=== PATIENT | male | born 1955 | race Caucasian/White ===

== ENCOUNTER → 2019-07-25 | Emergency (ER) | payer OTHER ==
[~2019-07-25] VITALS: Ht 182.9 cm; Wt 111.1 kg
[~2019-07-25] MED LIST: MORPHINE SULFATE 4 MG/ML SYR/VIAL IV ONE; ONDANSETRON HCL 4 MG/2 ML VIAL IV ONE; PIPERACILLIN-TAZOB 3.375GM 100 ML IV ONE; SODIUM CHLORIDE 0.9% 1,000 ML IV ONE
[2019-07-25 04:20] LABS: Basophils # (auto) 0.1 10 ^3/uL (0-0.2); Basophils % (auto) 0.5 % (0.0-2.0); Eosinophils # (auto) 0 10 ^3/uL (0-0.8); Eosinophils % (auto) 0.4 % (0.0-7.0); Hematocrit 45.3 % (41.0-53.0); Hemoglobin 15.1 g/dL (13.5-17.5); Lymphocytes # (auto) 1.1 10 ^3/uL (0.4-5.4); Lymphocytes % (auto) 9.8 % (10.0-50.0); Mean Corpuscular Hemoglobin 29.4 pg (28.0-32.0); Mean Corpuscular Hgb Conc. 33.4 g/dL (32.0-36.0); Monocytes # (auto) 0.7 10 ^3/uL (0-1.3); Monocytes % (auto) 6.6 % (0.0-12.0); Neutrophils # (auto) 9.3 10 ^3/uL (1.6-8.6); Neutrophils % (auto) 82.7 % (37.0-80.0); Platelet Count (auto) 178 10^3/uL (140-450); Red Blood Cells 5.15 10^6/uL (4.5-5.90); Red Cell Distribution Width 13.1 % (11.8-14.3); White Blood Cell 11.3 10^3/uL (4.4-10.8)
[2019-07-25 09:35] LABS: Basophils # (auto) 0 10 ^3/uL (0-0.2); Basophils % (auto) 0.5 % (0.0-2.0); Eosinophils # (auto) 0.1 10 ^3/uL (0-0.8); Eosinophils % (auto) 0.7 % (0.0-7.0); Hematocrit 44.8 % (41.0-53.0); Hemoglobin 15.4 g/dL (13.5-17.5); Lymphocytes # (auto) 1.1 10 ^3/uL (0.4-5.4); Lymphocytes % (auto) 13.7 % (10.0-50.0); Mean Corpuscular Hemoglobin 30.4 pg (28.0-32.0); Mean Corpuscular Hgb Conc. 34.3 g/dL (32.0-36.0); Mean Corpuscular Volume 88.5 fL (80.0-100.0); Monocytes # (auto) 0.7 10 ^3/uL (0-1.3); Monocytes % (auto) 8.3 % (0.0-12.0); Neutrophils # (auto) 6.3 10 ^3/uL (1.6-8.6); Neutrophils % (auto) 76.8 % (37.0-80.0); Nucleated Red Blood Cells % 0.1 %; Platelet Count (auto) 160 10^3/uL (140-450); Red Blood Cells 5.06 10^6/uL (4.5-5.90); Red Cell Distribution Width 13.2 % (11.8-14.3); White Blood Cell 8.3 10^3/uL (4.4-10.8)
[2019-07-25 09:52] VITALS: BP 135/90
[2019-07-25 09:52] LABS: Alanine Aminotransferase 20 U/L (16-61); Albumin 3.9 g/dL (3.4-5.0); Anion Gap 8 (5-15); Aspartate Aminotransferase 15 U/L (15-37); BUN/Creatinine Ratio 5.8; Blood Urea Nitrogen 5 mg/dL (7-18); Calcium 8.6 mg/dL (8.5-10.1); Carbon Dioxide 24 mmol/L (21-32); Chloride 107 mmol/L (98-107); GFR African American 115 mL/min; GFR Non-African American 95 mL/min; Glucose 122 mg/dL (74-106); Potassium 3.5 mmol/L (3.5-5.1); Sodium 139 mmol/L (136-145)
[2019-07-25 09:56] LABS: Alkaline Phosphatase 54 U/L (45-117); Bilirubin, Total 0.8 mg/dL (0.2-1.0); Total Protein 7.4 g/dL (6.4-8.2)
[2019-07-25 10:07] LABS: INR 1.13 (0.9-1.15); Partial Thromboplastin Time 30.2 sec (23.64-32.05)
[2019-07-25 10:22] LABS: Lactic Acid w/Reflex 2.4 mmol/L (0.4-2.0)
[2019-07-25 10:45] LABS: Urine Bacteria NONE SEEN /hpf (None Seen); Urine Blood Negative /uL (Negative); Urine Specific Gravity 1.006 (1.001-1.035); Urine WBC 1 /hpf (0 - 3)
[2019-07-25 10:46] LABS: Alcohol, Urine < 3.0 mg/dL (0-5); Amphetamine Screen, Urine NEGATIVE (NEGATIVE); Barbiturate Scree,Urine NEGATIVE (NEGATIVE); Benzodiazephine Screen, Urine NEGATIVE (NEGATIVE); Cannabinoid Screen, Urine POSITIVE (NEGATIVE); Cocaine Screen, Urine NEGATIVE (NEGATIVE); Phencyclidine Screen, Urine NEGATIVE (NEGATIVE)
[2019-07-25 10:53] LABS: Opiate Scree,Urine NEGATIVE (NEGATIVE)
== END | disposition home or self-care (01) ==
LOC: EDBD 01:17 → ER 01:25
DX: K40.90 Unilateral inguinal hernia, without obstruction or gangrene, not specified as recurrent (principal); E86.0 Dehydration; Z90.49 Acquired absence of other specified parts of digestive tract; Z88.2 Allergy status to sulfonamides
CPT/HCPCS: 36415; 71045; 74176; 80053; 80307; 81001; 83605; 83690; 84484; 85025; 85610; 85730; 87040; 96365; 96375; 99285; J2270; J2405; J2543; J7030

== ENCOUNTER 2019-12-14 00:40 | Inpatient (IN) | payer OTHER ==
[~2019-12-14] VITALS: Ht 365.8 cm; Wt 102.9 kg
[2019-12-14 01:54] LABS: Basophils # (auto) 0 10 ^3/uL (0-0.2); Basophils % (auto) 0.6 % (0.0-2.0); Eosinophils # (auto) 0.2 10 ^3/uL (0-0.8); Eosinophils % (auto) 3.6 % (0.0-7.0); Hemoglobin 11.6 g/dL (13.5-17.5); Lymphocytes # (auto) 1.5 10 ^3/uL (0.4-5.4); Lymphocytes % (auto) 25.9 % (10.0-50.0); Mean Corpuscular Hemoglobin 30.7 pg (28.0-32.0); Mean Corpuscular Hgb Conc. 34.2 g/dL (32.0-36.0); Mean Corpuscular Volume 89.7 fL (80.0-100.0); Monocytes # (auto) 0.5 10 ^3/uL (0-1.3); Monocytes % (auto) 8.7 % (0.0-12.0); Neutrophils # (auto) 3.4 10 ^3/uL (1.6-8.6); Neutrophils % (auto) 61.2 % (37.0-80.0); Nucleated Red Blood Cells % 0.1 %; Platelet Count (auto) 125 10^3/uL (140-450); Red Blood Cells 3.79 10^6/uL (4.5-5.90); Red Cell Distribution Width 13.3 % (11.8-14.3); White Blood Cell 5.6 10^3/uL (4.4-10.8)
[2019-12-14 02:11] LABS: INR 1.11 (0.9-1.15); Partial Thromboplastin Time 29.1 sec (23.0-31.2)
[2019-12-14 02:14] LABS: Amylase 19 U/L (25-115); Anion Gap 6 (5-15); Blood Urea Nitrogen 10 mg/dL (7-18); Carbon Dioxide 26 mmol/L (21-32); Chloride 107 mmol/L (98-107); Glucose 97 mg/dL (74-106); Lipase 96 U/L (73-393); Magnesium 2.3 mg/dL (1.6-2.6); Potassium 3.5 mmol/L (3.5-5.1); Sodium 139 mmol/L (136-145)
[2019-12-14 02:16] LABS: Alanine Aminotransferase 19 U/L (16-61); Aspartate Aminotransferase 9 U/L (15-37); BUN/Creatinine Ratio 11.2; GFR African American 110 mL/min; GFR Non-African American 91 mL/min
[2019-12-14 02:21] LABS: Alkaline Phosphatase 57 U/L (45-117); Bilirubin, Total 0.6 mg/dL (0.2-1.0); Total Protein 7.4 g/dL (6.4-8.2)
[2019-12-14] MEDS ORDERED: ONDANSETRON HCL 4 MG/2 ML VIAL IV ONE (12:15)
[2019-12-14] MEDS ORDERED: MORPHINE SULF INJ 2 MG/ML SYRINGE 1ML IV ONE (12:15)
[2019-12-14] MEDS ORDERED: PROMETHAZINE HCL 25 MG/ML 1ML IV PRN (12:45)
[2019-12-14] MEDS ORDERED: MORPHINE SULF INJ 2 MG/ML SYRINGE 1ML IV PRN (12:45)
[2019-12-14] MEDS ORDERED: TEMAZEPAM 15 MG CAP PO PRN (12:45)
[2019-12-14] MEDS ORDERED: DEXTROSE (50%) 50ML SYRG IV PRN (12:45)
[2019-12-14] MEDS ORDERED: ACETAMINOPHEN 500 MG TAB PO PRN (12:45)
[2019-12-14] MEDS: ACCU-CHEK COMFORT CURVE STRIP VI SCH ×2 (17:00→22:12)
[2019-12-14] MEDS: FAMOTIDINE 20 MG TAB PO SCH ×2 (18:09→18:30)
[2019-12-14] MEDS ORDERED: LABETALOL HCL 5 MG/ML 4ML SYRINGE IV PRN (20:00)
--- NOTE | 2019-12-14 20:30 | NUR ---
received pt from ER
[2019-12-14] MEDS: traMADol HCL 50 MG TAB PO PRN (20:55)
[2019-12-14 22:00] VITALS: BP 154/92
[2019-12-15] MEDS: traMADol HCL 50 MG TAB PO PRN ×2 (03:22→12:47)
[2019-12-15] MEDS ORDERED: IBUP100S11 PO (03:31)
[2019-12-15] MEDS ORDERED: ACET-1304 PO (03:31)
[2019-12-15 05:00] VITALS: BP 155/73
[2019-12-15] MEDS: ACCU-CHEK COMFORT CURVE STRIP VI SCH ×4 (06:10→21:15)
[2019-12-15 09:00] VITALS: BP 136/72
--- NOTE | 2019-12-15 11:31 | NUR ---
BLOOD GLUCOSE LEVEL 123. WILL CONTINUE TO MONITOR.
[2019-12-15 13:00] VITALS: BP 141/82
--- NOTE | 2019-12-15 13:24 | NUR ---
Opening Shift Note Assumed care of patient, awake and alert. No S/S of distress/SOB Patient complained of headache administered Tylenol . Instructed on POC and instructed to call for assistance PRN, Bed was at its lowest position will continue to monitor for changes Q1hr and PRN. Addendum: 12/15/19 at 1651 by Maribel Lu RN CORRECT TIME WAS 0730
[2019-12-15] MEDS: MEPERIDINE HCL (50 MG/ML) 1 ML VIAL IM PRN ×2 (14:41→18:36)
--- NOTE | 2019-12-15 16:52 | NUR ---
BLOOD GLUCOSE LEVEL 12. WILL CONTINUE TO MONITOR. Addendum: 12/15/19 at 1652 by Maribel Lu RN CORRECT BLOOD GLUCOSE LEVEL WAS 91
[2019-12-15 17:00] VITALS: BP 137/85
[2019-12-15] MEDS: FAMOTIDINE 20 MG TAB PO SCH (21:15)
[2019-12-15 22:00] VITALS: BP 130/99
[2019-12-16] MEDS: MEPERIDINE HCL (50 MG/ML) 1 ML VIAL IM PRN ×2 (03:48→10:40)
[2019-12-16 05:00] VITALS: BP 143/71
[2019-12-16 06:08] LABS: Basophils # (auto) 0 10 ^3/uL (0-0.2); Basophils % (auto) 0.3 % (0.0-2.0); Eosinophils # (auto) 0.2 10 ^3/uL (0-0.8); Eosinophils % (auto) 2.2 % (0.0-7.0); Hematocrit 43.3 % (41.0-53.0); Hemoglobin 14.7 g/dL (13.5-17.5); Lymphocytes # (auto) 1.2 10 ^3/uL (0.4-5.4); Lymphocytes % (auto) 13.8 % (10.0-50.0); Mean Corpuscular Hemoglobin 30.3 pg (28.0-32.0); Mean Corpuscular Hgb Conc. 33.9 g/dL (32.0-36.0); Mean Corpuscular Volume 89.4 fL (80.0-100.0); Monocytes # (auto) 0.8 10 ^3/uL (0-1.3); Monocytes % (auto) 9.2 % (0.0-12.0); Neutrophils # (auto) 6.2 10 ^3/uL (1.6-8.6); Neutrophils % (auto) 74.5 % (37.0-80.0); Nucleated Red Blood Cells % 0.1 %; Platelet Count (auto) 150 10^3/uL (140-450); Red Blood Cells 4.84 10^6/uL (4.5-5.90); Red Cell Distribution Width 13.2 % (11.8-14.3); White Blood Cell 8.4 10^3/uL (4.4-10.8)
[2019-12-16 06:26] LABS: Potassium 3.5 mmol/L (3.5-5.1)
[2019-12-16 06:30] LABS: BUN/Creatinine Ratio 10.3; Calcium 8.3 mg/dL (8.5-10.1)
[2019-12-16] MEDS: ACCU-CHEK COMFORT CURVE STRIP VI SCH (06:48)
--- NOTE | 2019-12-16 08:28 | NUR ---
Opening Shift Note Assumed care of patient, awake and alert. No S/S of distress/SOB or pain. Bed was at lowest position and call light is within reach instructed on POC and to call for assistance PRN ,will continue to monitor for changes Q1hr and PRN.
[2019-12-16 09:00] VITALS: BP 147/92
[2019-12-16] MEDS: FAMOTIDINE 20 MG TAB PO SCH (09:19)
[2019-12-16] MEDS ORDERED: MEPERIDINE HCL (25 MG/ML) 1ML VIAL IM PRN (12:00)
[2019-12-16] MEDS: SODIUM CHLORIDE 0.9% 1,000 ML IV SCH ×2 (12:00→22:42)
[2019-12-16] MEDS ORDERED: LABETALOL HCL 5 MG/ML 4ML SYRINGE IV PRN (12:00)
[2019-12-16 13:00] VITALS: BP 141/97
[2019-12-16 14:06] LABS: Urine Bacteria NONE SEEN /hpf (None Seen); Urine Blood Negative /uL (Negative); Urine Specific Gravity 1.006 (1.001-1.035); Urine WBC <1 /hpf (0 - 3)
[2019-12-16] MEDS: MEPERIDINE HCL (25 MG/ML) 1ML VIAL IV PRN ×2 (16:20→22:42)
[2019-12-16 17:00] VITALS: BP 144/81
[2019-12-16 21:56] VITALS: BP 158/85
[2019-12-17 05:00] VITALS: BP 139/86
[2019-12-17] MEDS: MEPERIDINE HCL (25 MG/ML) 1ML VIAL IV PRN ×4 (05:09→21:12)
[2019-12-17 06:20] LABS: Basophils # (auto) 0.1 10 ^3/uL (0-0.2); Basophils % (auto) 0.6 % (0.0-2.0); Eosinophils # (auto) 0.2 10 ^3/uL (0-0.8); Hematocrit 44.3 % (41.0-53.0); Hemoglobin 15.1 g/dL (13.5-17.5); Lymphocytes # (auto) 1.3 10 ^3/uL (0.4-5.4); Lymphocytes % (auto) 15.9 % (10.0-50.0); Mean Corpuscular Hemoglobin 30.5 pg (28.0-32.0); Mean Corpuscular Hgb Conc. 34.1 g/dL (32.0-36.0); Mean Corpuscular Volume 89.5 fL (80.0-100.0); Monocytes # (auto) 0.7 10 ^3/uL (0-1.3); Monocytes % (auto) 8.7 % (0.0-12.0); Neutrophils % (auto) 72.8 % (37.0-80.0); Nucleated Red Blood Cells % 0.2 %; Platelet Count (auto) 166 10^3/uL (140-450); Red Blood Cells 4.95 10^6/uL (4.5-5.90); Red Cell Distribution Width 13.1 % (11.8-14.3); White Blood Cell 8.3 10^3/uL (4.4-10.8)
--- NOTE | 2019-12-17 06:30 | NUR ---
CHG wipes applied
[2019-12-17 06:38] LABS: BUN/Creatinine Ratio 11.3; Calcium 8.5 mg/dL (8.5-10.1); Potassium 3.5 mmol/L (3.5-5.1)
--- NOTE | 2019-12-17 07:05 | NUR ---
PROVIDED REPORT TO DAY RN. NOTIFIED RN OF PRE-OP REQUESTING PATIENT AT [id number] AM.
--- NOTE | 2019-12-17 07:30 | NUR ---
Opening Shift Note Assumed care of patient, awake and alert. No S/S of distress/SOB or pain.Bed is locked and in lowest position and call light is with in reach. Instructed on POC and to call for assistance PRN, will continue to monitor for changes Q1hr and PRN.
[2019-12-17] MEDS ORDERED: BUPIVACAINE W/ EPINEPH 0.25% INJ 50ML MDV ONE (08:12)
[2019-12-17] MEDS ORDERED: MEPERIDINE HCL (50 MG/ML) 1 ML VIAL ONE (08:17)
[2019-12-17] MEDS ORDERED: fentaNYL CITRATE 100 MCG/2 ML VL ONE (08:17)
[2019-12-17] MEDS ORDERED: MIDAZOLAM HCL 1MG/1ML-2 ML VIAL ONE (08:17)
--- NOTE | 2019-12-17 08:17 | NUR ---
PATIENT WAS TAKEN DOWN TO OR , no signs of distress, or anxiety.
[2019-12-17] MEDS ORDERED: ceFAZolin 1GM/50ML 50 ML IV ONE (08:20)
[2019-12-17] MEDS ORDERED: SUCCINYLCHOLINE CHLORIDE 20 MG/ML 10ML VIAL IV ONE (08:21)
[2019-12-17] MEDS ORDERED: PROPOFOL 10 MG/ML 20 ML IV ONE ×2 (08:21→09:33)
[2019-12-17] MEDS ORDERED: DexAMETHasone SOD PHOS 10MG/1ML VIAL INJ ONE (08:51)
[2019-12-17 09:00] VITALS: BP 162/94
--- NOTE | 2019-12-17 09:10 | NUR ---
Patient is down at OR Addendum: 12/17/19 at 1104 by ROM CRESW RN RN Amended: Links added.
[2019-12-17] MEDS: FAMOTIDINE (10MG/ML) 2ML VL IV SCH (10:00)
[2019-12-17] MEDS ORDERED: ONDANSETRON HCL 4 MG/2 ML VIAL IV PRN ×2 (10:15→10:45)
[2019-12-17] MEDS ORDERED: MIDAZOLAM HCL 1MG/1ML-2 ML VIAL IV PRN (10:45)
[2019-12-17] MEDS ORDERED: LABETALOL HCL 5 MG/ML 4ML SYRINGE IV PRN (10:45)
[2019-12-17] MEDS ORDERED: MORPHINE SULFATE 4 MG/ML SYR/VIAL IV PRN (10:45)
[2019-12-17] MEDS ORDERED: HYDROmorphone HCL 2 MG/ML VL IV PRN (10:45)
[2019-12-17] MEDS ORDERED: ePHEDrine SULFATE 50 MG/ML AMP IV PRN (10:45)
--- NOTE | 2019-12-17 11:05 | NUR ---
Patient down at OR Addendum: 12/17/19 at 1106 by ROM CREWS RN RN Amended: Lina added.
--- NOTE | 2019-12-17 11:30 | NUR ---
Returned Patient returned from OR , incision is intact, dressing clean , dry and intact. No signs of distress.
[2019-12-17 13:00] VITALS: BP_SYST 136; BP_SYST 166; BP_DIAS 75; BP_DIAS 92
[2019-12-17] MEDS: PHENAZOPYRIDINE HCL 100 MG TAB PO SCH ×2 (13:14→17:43)
[2019-12-17] MEDS: ceFAZolin 1GM/50ML 50 ML IV SCH ×2 (13:15→21:13)
--- NOTE | 2019-12-17 13:59 | NUR ---
Dc Left Ac Dc left Ac , Started Left hand , Flushed and patent.
--- NOTE | 2019-12-17 14:14 | NUR ---
Order for Jock Strap Patient is refusing to wear jockstrap at this time , education to wear it was given patient continues to refuse. Will make primary RN aware will attempt again at a later time.
--- NOTE | 2019-12-17 14:46 | NUR ---
Nutrition Assessment Notes Please refer to link for full assessment notes. Est Energy needs: 6289-7176 kcals (20-23 kcal/kgBW) Est Protein needs: 104-114 gms/day (1.0-1.1 gm/kgBW) Will continue to monitor and reassess prn. Addendum: 12/17/19 at [address] Amended: Links added.
--- NOTE | 2019-12-17 16:15 | NUR ---
assessment Patient is a 64 year old male who is alert and oriented. Patients cognitive abilities are intact. Prior to admission patient lived home alone and functioned independently. Patient informed me he is able to care for his own ADLs. Per patient he will return home to his prior living arrangements post discharge and he will have transport home. Patient has a cane for home use. Patient informed me he will have help on discharge from his neighbor if he needs it. Patient may benefit from a fww on discharge. I informed patient he has a right to speak to a high school social studies teacher regarding all care. I informed patient he has a right to participate in any and all discharge planning. Patient does not have a POA and advanced directive. I have offered patient information on POA and advanced directives. I informed the patient the advantages and benefits of having an Advanced Directive. Patient verbalized understanding and agreed to discharge plan home. Addendum: 12/17/19 at 1619 by Jane HEIN Amended: Links added.
--- NOTE | 2019-12-17 16:20 | NUR ---
DE LA CRUZ BAG LEAKING, BAG WAS CHANGED OUT
[2019-12-17 17:00] VITALS: BP 157/111
--- NOTE | 2019-12-17 19:20 | NUR ---
Opening Shift Note Assumed care of patient, awake and alert. No S/S of distress/SOB or pain. Instructed on POC and to call for assist PRN, will continue to monitor for changes Q1hr and PRN. Side rails up x 2, HOB elevated at least 30 degrees and call light is within reach.
[2019-12-17] MEDS: SODIUM CHLORIDE 0.9% 1,000 ML IV SCH (21:13)
[2019-12-17 22:00] VITALS: BP 155/100
--- NOTE | 2019-12-17 23:00 | NUR ---
IV insertion IV access obtained, via clean sterile technique by inserting 22 gauge catheter at right hand after 1 attempt. IV secured properly. No trauma to site. Patient tolerated well.
[2019-12-17] MEDS: HYDROmorphone HCL 2 MG/ML VL IV PRN (23:17)
[2019-12-18] MEDS: MEPERIDINE HCL (25 MG/ML) 1ML VIAL IV PRN (01:28)
[2019-12-18] MEDS: HYDROmorphone HCL 2 MG/ML VL IV PRN ×6 (02:57→18:21)
--- NOTE | 2019-12-18 03:01 | NUR ---
INCREASED SWELLING PATIENT VERBALIZED A COMPLAINT OF INCREASED SWELLING AT GROIN. AREA TENDER AND PAIN EVIDENCED BY GROANING AND WITHDRAWAL FROM TOUCH. BP AT 156/88 WITH A HR OF 86, RESPIRATIONS AT 20 AND 02 SAT AT 96. PRN MEDICATION GIVEN ORDERED. WILL REASSESS WITHIN THE HOUR.
--- NOTE | 2019-12-18 03:35 | NUR ---
Jock Strap Patient reusing to wear jock strap. Patient verbalized that he feels the jock strap is too small and will give him pain if he wears it. Education provided, however patient continued to refuse. Will inquire for a larger size.
--- NOTE | 2019-12-18 03:42 | NUR ---
PAIN REASSESSMENT PATIENT VERBALIZED A DECREASE IN PAIN LEVEL TO A 3. PATIENT VERBALIZED THAT THIS IS A TOLERABLE PAIN LEVEL AT THIS TIME.
[2019-12-18 05:00] VITALS: BP 136/86
[2019-12-18] MEDS: ceFAZolin 1GM/50ML 50 ML IV SCH ×3 (05:04→22:31)
--- NOTE | 2019-12-18 05:16 | NUR ---
ICE PACKS 2 ICE PACKS APPLIED TO GROIN AREA
--- NOTE | 2019-12-18 07:11 | NUR ---
CLOSING SHIFT NOTE ENDORSED CARE TO DAY SHIFT RN
--- NOTE | 2019-12-18 07:40 | NUR ---
Opening Note Assumed pt care from NOC RN. PT is a/ox4 with no s/s of distress or SOB. Pt is currently sitting upright in bed with c/o pain to R inguinal area, 01/30. Pt states that he feels "that [his] scrotum is swollen"; assessed incision site and scrotum, no abnormalities noted. Pt is currently refusing to wear jock strap per MD's orders; pt states that it is too tight. Provided pt with education on strap; pt still refused. Padilla is present, draining to gravity and free of kinks. Discussed POC with pt; pt verbalized understanding. Safety measures maintained with call light within reach, bed in lowest position and side rails up. Will continue to monitor for changes.
[2019-12-18 07:46] LABS: Basophils # (auto) 0 10 ^3/uL (0-0.2); Basophils % (auto) 0.2 % (0.0-2.0); Eosinophils # (auto) 0.1 10 ^3/uL (0-0.8); Eosinophils % (auto) 0.4 % (0.0-7.0); Hematocrit 43.6 % (41.0-53.0); Lymphocytes # (auto) 1.8 10 ^3/uL (0.4-5.4); Mean Corpuscular Hemoglobin 30.4 pg (28.0-32.0); Mean Corpuscular Hgb Conc. 34.4 g/dL (32.0-36.0); Mean Corpuscular Volume 88.3 fL (80.0-100.0); Monocytes # (auto) 1.7 10 ^3/uL (0-1.3); Monocytes % (auto) 12.1 % (0.0-12.0); Neutrophils # (auto) 10.2 10 ^3/uL (1.6-8.6); Neutrophils % (auto) 74.3 % (37.0-80.0); Nucleated Red Blood Cells % 0.2 %; Platelet Count (auto) 186 10^3/uL (140-450); Red Blood Cells 4.93 10^6/uL (4.5-5.90); White Blood Cell 13.7 10^3/uL (4.4-10.8)
[2019-12-18] MEDS: PHENAZOPYRIDINE HCL 100 MG TAB PO SCH ×3 (07:50→17:46)
[2019-12-18 08:03] LABS: Calcium 8.3 mg/dL (8.5-10.1); Potassium 3.4 mmol/L (3.5-5.1)
--- NOTE | 2019-12-18 08:50 | NUR ---
0435 12/18/19 - Faxed to [facility] at [phone] face sheet, order for DME front Stephany chapa, current clinicals. Pending review and delivery of DME to bedside. Addendum: 12/18/19 at 1006 by Lottie Dodge RN, CM [id number] 12/18/19 - Contacted [facility] AT [phone] regarding pending DME order for FWW, spoke with financial business analyst Lo who confirmed receipt of all faxed clinicals. Lo stated the skilled nursing case manager assigned to this patient is Steffen, who is processing the DME order now. Provided Lo with my call back info. Addendum: 12/18/19 at 1540 by Lottie Dodge RN CM [id number] 12/18/19 - Contacted by [facility] skilled nursing case managerSteffen who stated DME was approved and will be delivered to bedside via [employer]. Spoke with bedside nurse (GENEVA) who stated walker has been delivered.
[2019-12-18 09:00] VITALS: BP 149/94
[2019-12-18] MEDS: FAMOTIDINE (10MG/ML) 2ML VL IV SCH (09:49)
--- NOTE | 2019-12-18 11:33 | NUR ---
Dr Gonzales at Bedside MD to see pt. Discussed POC with pt and assessed pt's incision site. MD requests that Dr Mae see pt today. New orders given. Will implement and continue to monitor for changes.
[2019-12-18] MEDS ORDERED: POTASSIUM CHL 20 Meq TABLET PO ONE (11:45)
[2019-12-18] MEDS ORDERED: DOCUSATE SOD 100 MG CAP PO ONE (11:45)
[2019-12-18] MEDS ORDERED: LACTULOSE 20Gm/30ML SOLN PO ONE (11:45)
[2019-12-18] MEDS: HYDROcodone-ACET 5/325MG TAB PO PRN ×2 (12:02→19:22)
[2019-12-18 13:00] VITALS: BP 164/84
[2019-12-18] MEDS: SODIUM CHLORIDE 0.9% 1,000 ML IV SCH (13:17)
--- NOTE | 2019-12-18 15:37 | NUR ---
D/C Planning Walker was delivered to pt's bedside.
--- NOTE | 2019-12-18 16:01 | NUR ---
Paged Materials For Larger Jock Strap Spoke with materials, stated they would provide pt with larger jock strap. Will continue to monitor and once delivered will implement. Addendum: 12/18/19 at 1803 by CARMINA CARRILLO RN RN Pt provided jock strap and education regarding purpose.
[2019-12-18 16:44] VITALS: BP 150/72
--- NOTE | 2019-12-18 19:20 | NUR ---
Opening Shift Note Assumed care of patient, awake and alert. No S/S of distress/SOB or pain. Instructed on POC and to call for assist PRN, will continue to monitor for changes Q1hr and PRN. Assisted patient with application of jock strap. Side rails up x 2, HOB elevated at least 30 degrees and call light is within reach.
[2019-12-18 22:00] VITALS: BP 149/80
[2019-12-19] MEDS: HYDROmorphone HCL 2 MG/ML VL IV PRN ×3 (04:38→19:59)
[2019-12-19 05:00] VITALS: BP 150/79
[2019-12-19] MEDS: ceFAZolin 1GM/50ML 50 ML IV SCH ×3 (05:38→21:29)
[2019-12-19] MEDS: SODIUM CHLORIDE 0.9% 1,000 ML IV SCH ×2 (05:55→11:08)
--- NOTE | 2019-12-19 07:03 | NUR ---
CLOSING NOTE ENDORSED CARE TO DAY SHIFT RN
[2019-12-19] MEDS: PHENAZOPYRIDINE HCL 100 MG TAB PO SCH (08:21)
[2019-12-19 09:00] VITALS: BP 140/74
[2019-12-19 09:08] LABS: Basophils # (auto) 0.1 10 ^3/uL (0-0.2); Basophils % (auto) 0.5 % (0.0-2.0); Eosinophils # (auto) 0 10 ^3/uL (0-0.8); Eosinophils % (auto) 0.4 % (0.0-7.0); Hematocrit 40.4 % (41.0-53.0); Lymphocytes # (auto) 1.1 10 ^3/uL (0.4-5.4); Lymphocytes % (auto) 10.8 % (10.0-50.0); Mean Corpuscular Hemoglobin 30.6 pg (28.0-32.0); Mean Corpuscular Hgb Conc. 34.6 g/dL (32.0-36.0); Mean Corpuscular Volume 88.5 fL (80.0-100.0); Monocytes # (auto) 1.5 10 ^3/uL (0-1.3); Monocytes % (auto) 14.6 % (0.0-12.0); Neutrophils # (auto) 7.4 10 ^3/uL (1.6-8.6); Neutrophils % (auto) 73.7 % (37.0-80.0); Nucleated Red Blood Cells % 0.1 %; Platelet Count (auto) 167 10^3/uL (140-450); Red Blood Cells 4.57 10^6/uL (4.5-5.90); Red Cell Distribution Width 13.2 % (11.8-14.3); White Blood Cell 10.1 10^3/uL (4.4-10.8)
--- NOTE | 2019-12-19 09:15 | NUR ---
Opening Shift Note Assumed care of patient, awake alert and performing morning oral care upon entering the room. No S/S of distress/SOB. Pain rated 4/10 and tolerable. Surgical site appears dry and well approximated with steri strips. No signs of swelling, redness or drainage. Patient educated on POC and to call for assist PRN. Patient verbalized understanding. Will continue to monitor for changes Q1hr and PRN.
[2019-12-19] MEDS: FAMOTIDINE (10MG/ML) 2ML VL IV SCH (09:17)
[2019-12-19 09:29] LABS: BUN/Creatinine Ratio 10.9; Calcium 8.1 mg/dL (8.5-10.1)
--- NOTE | 2019-12-19 09:30 | NUR ---
DC DE LA CRUZ DE LA CRUZ CATHETER REMOVE AT NURSING DISCRETION. PATIENT TOLERATED REMOVAL WELL. PATIENT HAD 250 ML REMOVED PRIOR TO DC. WILL MONITOR PATIENT VOIDING NEEDS. PROVIDED PATIENT URINAL.
--- NOTE | 2019-12-19 11:10 | NUR ---
Voiding Pt has been able to void without difficulty.
--- NOTE | 2019-12-19 11:25 | NUR ---
Dr Gonzales at bedside Doctor in to see patient. Discussed plan of care. MD request to follow up on advanced of diet. Will contact Dr Mae and continue to monitor.
[2019-12-19] MEDS ORDERED: POTASSIUM CHL 20 Meq TABLET PO ONE (11:30)
[2019-12-19 13:06] VITALS: BP 144/94
--- NOTE | 2019-12-19 13:51 | NUR ---
Dr Mae at bedside Dr Mae at bedside, states he will put in order to advance patient's diet.
--- NOTE | 2019-12-19 14:38 | NUR ---
Nutrition Followup Notes Pt wt is 104.0. Pt is currently NPO d/t scheduled procedure, previously with a Full Liquid diet with a poor appetite aeb ave <20% Po intake over 3 days per RN doc Encouraged pt to increase PO intake after resuming diet. Est Energy needs: 1328-0640 kcals (20-23 kcal/kgBW) Est Protein needs: 104-114 gms/day (1.0-1.1 gm/kgBW) Will continue to monitor and reassess prn. LABS: GLUC 112 H, CA 8.1 L GI: Pt had 1 BM on 12/16 per RN doc BS: 20 Low risk. Refer to wound assessment report for full details. PES: Obesity r/t energy intake in excess of energy needs aeb 129% IBW and BMI of 31.1 kg/m2 Comments Will continue to monitor PO status, skin status, pertinent labs and weight trends. Will f/u in 3-5 days. 1) Continue to carefully monitor pt NPO status 2) Gradually advance pt to oral diet when medically feasible and as tolerated 3) Refer pt to a OP RD for nutrition education upon D/C 4) Continue current plan of care
[2019-12-19 17:00] VITALS: BP 139/87
--- NOTE | 2019-12-19 17:25 | NUR ---
PT IS ABLE TO AMBULATE WITH FWW INDEPENDENTLY. NURSING TO ASSIST PATIENT NEEDED.
--- NOTE | 2019-12-19 20:46 | NUR ---
Opening Shift Note Assumed care of patient, awake and alert. No S/S of SOB. Patient expressed a pain level of 8 out of 10. Will administer PRN pain medication. Instructed on POC and to call for assist PRN, will continue to monitor for changes Q1hr and PRN. Bed locked in lowest position, HOB elevated at least 30 degrees, side rails up x 2 and call light is within reach.
[2019-12-19 21:50] VITALS: BP 133/79
[2019-12-20] MEDS: HYDROmorphone HCL 2 MG/ML VL IV PRN (01:59)
[2019-12-20 04:54] VITALS: BP 135/84
[2019-12-20] MEDS: ceFAZolin 1GM/50ML 50 ML IV SCH ×3 (05:30→21:20)
--- NOTE | 2019-12-20 07:36 | NUR ---
CLOSING NOTE ENDORSED CARE TO DAY SHIFT RN
[2019-12-20 07:49] LABS: Basophils # (auto) 0 10 ^3/uL (0-0.2); Basophils % (auto) 0.5 % (0.0-2.0); Eosinophils # (auto) 0.2 10 ^3/uL (0-0.8); Eosinophils % (auto) 2.1 % (0.0-7.0); Hematocrit 37.8 % (41.0-53.0); Hemoglobin 13.4 g/dL (13.5-17.5); Lymphocytes # (auto) 1.3 10 ^3/uL (0.4-5.4); Lymphocytes % (auto) 16.9 % (10.0-50.0); Mean Corpuscular Hemoglobin 31.1 pg (28.0-32.0); Mean Corpuscular Hgb Conc. 35.4 g/dL (32.0-36.0); Mean Corpuscular Volume 87.9 fL (80.0-100.0); Neutrophils # (auto) 5.1 10 ^3/uL (1.6-8.6); Neutrophils % (auto) 67.5 % (37.0-80.0); Platelet Count (auto) 155 10^3/uL (140-450); Red Blood Cells 4.29 10^6/uL (4.5-5.90); White Blood Cell 7.5 10^3/uL (4.4-10.8)
[2019-12-20 08:23] LABS: Potassium 2.9 mmol/L (3.5-5.1)
--- NOTE | 2019-12-20 08:26 | NUR ---
OPENING SHIFT NOTE Assumed Care of pt. Pt is awake and A&Ox4 with no s/s of distress or SOB. Eating breakfast comfortably in bed. Reviewed POC with pt. Call light within reach, bed in lowest position and side rails up. Will continue to monitor for changes Q1HR.
--- NOTE | 2019-12-20 09:29 | NUR ---
CRITICAL POTASSIUM OF 2.9. MD ALREADY AWARE OF 3.0 POTASSIUM. WILL NOTIFY MD OF NEW RESULT.
[2019-12-20 09:36] VITALS: BP 163/80
[2019-12-20] MEDS ORDERED: TAMSULOSIN HYDROCHLORIDE 0.4 MG CAP PO ONE (10:45)
[2019-12-20] MEDS ORDERED: POTASSIUM CHL 20 Meq TABLET PO ONE (10:45)
[2019-12-20 12:52] VITALS: BP 143/79
[2019-12-20 16:34] VITALS: BP 139/98
[2019-12-20] MEDS: HYDROcodone-ACET 5/325MG TAB PO PRN (20:16)
--- NOTE | 2019-12-20 20:16 | NUR ---
Opening Shift Note Assumed care of patient, awake and alert. No S/S of distress/SOB c/o right inguinal pain 6/10 pain. Instructed on POC and to call for assist PRN, will continue to monitor for changes Q1hr and PRN.Medicated with [place] 5/325mg.p.o.one tab. as needed.Sterile strips intact.
[2019-12-20 22:00] VITALS: BP 121/89
[2019-12-21 05:00] VITALS: BP 163/100
[2019-12-21] MEDS: ceFAZolin 1GM/50ML 50 ML IV SCH ×2 (05:30→14:00)
[2019-12-21 05:50] VITALS: BP 135/91
[2019-12-21] MEDS: HYDROcodone-ACET 5/325MG TAB PO PRN (05:55)
--- NOTE | 2019-12-21 06:20 | NUR ---
IV insertion IV access obtained, via clean sterile technique by inserting 22 gauge catheter at left hand after attempt. IV secured properly. No trauma to site. Patient tolerated procedure well.
[2019-12-21 06:39] LABS: Potassium 3.2 mmol/L (3.5-5.1)
[2019-12-21 06:41] LABS: BUN/Creatinine Ratio 9.7; Calcium 8.5 mg/dL (8.5-10.1)
--- NOTE | 2019-12-21 07:23 | NUR ---
Report given to Esteban Galvan, patient is resting no distress.
--- NOTE | 2019-12-21 08:21 | NUR ---
OPENING SHIFT NOTE Resumed Care of pt. Pt is awake and A&Ox4. PT is not aware of place or situation. No s/s of distress or SOB. Reviewed POC with pt. Call light within reach, bed in lowest position and side rails up. Will continue to monitor for changes Q1HR.
[2019-12-21 08:46] VITALS: BP 138/93
[2019-12-21] MEDS ORDERED: LISI-275 PO (12:20)
[2019-12-21] MEDS ORDERED: TAM04C PO (12:20)
[2019-12-21] MEDS ORDERED: DOCU-94 PO (12:22)
[2019-12-21 13:00] VITALS: BP 126/75
--- NOTE | 2019-12-21 17:29 | NUR ---
Discharge instructions given as ordered. Encourage to follow up with PMD as instructed. All questions and concerns addressed. Patient verbalized understanding. Medication reconciliation form completed and copy given to patient. IV removed with catheter intact, pressure dressing applied, katz catheter removed. Patient taken to vehicle via wheelchair with all personal belongings, accompanied by staff and family member. No distress noted at time of departure.
[2019-12-21] MEDS ORDERED: TAMSULOSIN HYDROCHLORIDE 0.4 MG CAP PO SCH (18:00)
--- NOTE | 2019-12-22 10:17 | NUR ---
Received no call or page for this SS consult.
== END 2019-12-21 17:12 | disposition home or self-care (01) | DRG 352 ==
LOC: EDBD 00:40 → ER 00:40 → OVERFLOW 00:41 → WEST WING 20:28
PROVIDERS: ADMIT Internal Medicine; ATTEND Internal Medicine
PROC: 0YQ50ZZ Repair Right Inguinal Region, Open Approach (ICD-10-PCS; principal; 2019-12-17 08:30)
DX: K40.30 Unilateral inguinal hernia, with obstruction, without gangrene, not specified as recurrent (principal); I10 Essential (primary) hypertension; D63.8 Anemia in other chronic diseases classified elsewhere; D69.6 Thrombocytopenia, unspecified; E66.01 Morbid (severe) obesity due to excess calories; E78.5 Hyperlipidemia, unspecified; K59.00 Constipation, unspecified; E87.6 Hypokalemia; G89.29 Other chronic pain; N40.0 Benign prostatic hyperplasia without lower urinary tract symptoms; E11.9 Type 2 diabetes mellitus without complications; Z90.49 Acquired absence of other specified parts of digestive tract; Z88.2 Allergy status to sulfonamides; Z68.31 Body mass index [BMI] 31.0-31.9, adult
CPT/HCPCS: 36415; 71045; 74176; 80048; 80053; 81001; 82150; 82962; 83036; 83690; 83735; 83880; 84443; 84484; 85025; 85610; 85730; 86850; 86900; 86901; 88302; 93005; 93306; G0378; J0330; J0690; J1100; J2250; J2405; J2704; J3490